=== PATIENT | female | born 1945 | race Caucasian/White ===

== ENCOUNTER 2017-10-22 13:24 | Observation (INO) | payer OTHER ==
[~2017-10-22] VITALS: Ht 157.5 cm; Wt 112.5 kg
[~2017-10-22 13:24] MED LIST: ADVAIR 250/501 DISK IH; ADVAIR 500/501 DISK IH; ALBUTEROL S5 MG/1 ML IH; ALBUTEROL2.5 MG/0.5 IH; ALDACTONE25 MG PO; ASPIRIN EC325 MG PO; ASPIRIN325 MG PO; ASPIRIN81 M2 PO; ATIVAN0.5 MG PO; BIOTIN 5000MCG PO; CARVEDILOL12.5 MG PO; CELECOXIB200 MG PO; EFFEXOR XR150 MG PO; HYDROCHLOROTHIA25 MG PO; HYDROCODON-ACE1 EAC7 PO; LASIX40 MG PO; LIPITOR80 MG PO; LO-DOSE ASPIRIN81 M1 PO; METFORMIN HCL500 MG PO; NITROLINGUAL S4.9 GM MM; NORVASC10 MG PO; PAROXETINE HCL40 MG PO; PLAVIX75 MG PO; REQUIP0.5 MG PO; SPIRIVA1 INHALATI IH; TRAMADOL HCL50 MG PO; TRANDOLAPRIL4 MG PO; VENTOLIN HFA18 GM IH; [UNRECOGNIZED DRUG - MIXTURE] PO
[2017-10-22 14:28] LABS: HEMATOCRIT 35.7 % (36.0-46.0); MCH 28.7 PG (29.0-34.0); MCHC 33.6 G/DL (30.0-36.0); MCV 85.4 FL (83-99); PLATELET COUNT 152 K/uL (156-360); RBC DIS.WIDTH-CV 13.3 % (11.8-14.6); RBC DIS.WIDTH-SD 41.4 % (39-53); RED BLOOD COUNT 4.18 M/uL (3.80-5.20); WHITE BLOOD COUNT 5.8 K/uL (4.1-10.2)
[2017-10-22 14:32] LABS: CARBON DIOXIDE (BICARBONATE) 28.6 MEQ/L (20-31)
[2017-10-22 14:39] LABS: ALBUMIN 3.7 g/dL (3.2-4.8); CHLORIDE 104 mEq/L (99-109); SODIUM 139 mEq/L (136-147)
[2017-10-22 14:40] LABS: MAGNESIUM 1.9 mg/dL (1.3-2.7)
[2017-10-22 14:42] LABS: TOTAL PROTEIN 6.2 g/dL (6.4-8.3)
[2017-10-22 14:43] LABS: TOTAL BILIRUBIN 0.6 mg/dL (0.0-1.0)
[2017-10-22 14:45] LABS: ALKALINE PHOSPHATASE 124 IU/L (3-129); CREATININE 0.9 mg/dL (0.6-1.3); GFR ESTIMATE (CALCULATED) > 59 mL/min/; PHOSPHORUS 2.3 mg/dL (2.5-4.9)
[2017-10-22 14:46] LABS: UREA NITROGEN (BUN) 30 mg/dL (9-23)
[2017-10-22 14:47] LABS: AST (GOT) 38 IU/L (2-34)
[2017-10-22 14:48] LABS: ALT (GPT) 59 IU/L (3-49); LIPASE 58 U/L (1.0-51.0)
[2017-10-22 14:49] LABS: TROP-I INTERPRETATION NEGATIVE; TROPONIN-I < 0.01 ng/mL (0.0-0.30)
[2017-10-22 14:52] LABS: GLUCOSE 495 mg/dL (70-99)
[2017-10-22] MEDS ORDERED: METFORMIN HCL500 MG PO (17:42)
[2017-10-22] MEDS ORDERED: EZETIMIBE10 MG PO (18:57)
[2017-10-22] MEDS ORDERED: COLBENEMID1 TABLET PO (19:08)
[2017-10-22] MEDS ORDERED: VENLAFAXINE HCL75 M3 PO (19:13)
[2017-10-22 20:12] VITALS: BP 190/81
[2017-10-22 21:28] LABS: TROP-I INTERPRETATION NEGATIVE; TROPONIN-I 0.01 ng/mL (0.0-0.30)
[2017-10-23 00:04] VITALS: BP 120/56
[2017-10-23 03:08] LABS: TROP-I INTERPRETATION NEGATIVE; TROPONIN-I < 0.01 ng/mL (0.0-0.30)
[2017-10-23 04:11] VITALS: BP 137/64
[2017-10-23 04:24] LABS: APPEARANCE CLEAR ((CLEAR)); BILIRUBIN NEGATIVE; BLOOD NEGATIVE; COLOR YELLOW ((YELLOW)); GLUCOSE (STRIP) >=500; KETONES NEGATIVE; LEUKOCYTES NEGATIVE; NITRITE NEGATIVE; PROTEIN (STRIP) NEGATIVE; UROBILINOGEN 0.2 MG/DL (0.2-1.0)
[2017-10-23 05:56] LABS: HEMOGLOBIN 10.3 G/DL (11.9-15.5); MCH 27.9 PG (29.0-34.0); MCHC 32.2 G/DL (30.0-36.0); MCV 86.7 FL (83-99); PLATELET COUNT 135 K/uL (156-360); RBC DIS.WIDTH-CV 13.5 % (11.8-14.6); RBC DIS.WIDTH-SD 42.8 % (39-53); RED BLOOD COUNT 3.69 M/uL (3.80-5.20); WHITE BLOOD COUNT 4.6 K/uL (4.1-10.2)
[2017-10-23 06:19] LABS: CHLORIDE 110 MEQ/L (99-109); CREATININE 0.6 MG/DL (0.6-1.3); GFR ESTIMATE (CALCULATED) > 59 mL/min/; GLUCOSE 268 mg/dL (70-99); POTASSIUM 3.9 MEQ/L (3.7-5.4); SODIUM 140 MEQ/L (136-147); UREA NITROGEN (BUN) 18 mg/dL (9-23)
[2017-10-23 07:36] VITALS: BP 176/80
[2017-10-23 09:40] LABS: HEMOGLOBIN A1c (GLYCOHEMOGLOB) 12.3 % (Below 5.7)
[2017-10-23 11:49] VITALS: BP 166/74
== END 2017-10-23 14:06 | disposition home or self-care (01) ==
LOC: EME 13:24 → EDOF 19:13 → 5WEST 19:13 → ENRESERV 19:14 → 5WEST 20:09
PROVIDERS: Emergency Medicine; Hospitalist
DX: E11.65 Type 2 diabetes mellitus with hyperglycemia (principal); E86.0 Dehydration; J96.10 Chronic respiratory failure, unspecified whether with hypoxia or hypercapnia; Z99.81 Dependence on supplemental oxygen; J44.9 Chronic obstructive pulmonary disease, unspecified; M79.89 Other specified soft tissue disorders; R60.0 Localized edema; Z87.891 Personal history of nicotine dependence; I10 Essential (primary) hypertension; E78.5 Hyperlipidemia, unspecified; I25.10 Atherosclerotic heart disease of native coronary artery without angina pectoris; Z95.1 Presence of aortocoronary bypass graft; Z95.5 Presence of coronary angioplasty implant and graft; I25.2 Old myocardial infarction; G47.30 Sleep apnea, unspecified; Z86.19 Personal history of other infectious and parasitic diseases; Z88.5 Allergy status to narcotic agent; Z91.048 Other nonmedicinal substance allergy status; E66.01 Morbid (severe) obesity due to excess calories; Z68.42 Body mass index [BMI] 45.0-49.9, adult; M19.90 Unspecified osteoarthritis, unspecified site
CPT/HCPCS: 71045; 76705; 80048; 80053; 81003; 82803; 82948; 83036; 83605; 83690; 83735; 83930; 84100; 84484; 85027; 87040; 93005; 93971; 94640; 94660; 94799; 99202; 99281; 99285; G0378; G8978 GP CH; G8979 GP CH; G8980 GP CH; G8987 GO CH; G8988 GO CH; G8989 GO CH; J1644; J1815; J2405; J7030